=== PATIENT | male | born 1985 ===

== ENCOUNTER 2017-05-16 15:06 | Emergency (ER) | payer SELFPAY ==
[~2017-05-16] VITALS: Ht 182.9 cm; Wt 70.3 kg
--- NOTE | 2017-05-16 15:38 | NUR ---
Varinder elaine in EDM - 05/16/17 at 1539 by PIPPA PT OUT OF ER FOR CHEST XRAY
--- NOTE | 2017-05-16 15:39 | NUR ---
PT BACK IN ER FROM CHEST XRAY
[2017-05-16] MEDS ORDERED: ACETAMINOPHEN ES 500 MG TABLET PO ONE (16:00)
[2017-05-16] MEDS ORDERED: ACETAMINOPHEN ES 500 MG TABLET ONE (16:15)
--- NOTE | 2017-05-16 16:33 | NUR ---
Patient discharged to home in stable conditon. Written and verbal after care instructions given. Patient verbalizes understanding of instructions. Steady gait
[2017-05-16 16:36] VITALS: BP 130/72
== END 2017-05-16 16:37 | disposition home or self-care (01) ==
LOC: ER 15:07
DX: S20.212A Contusion of left front wall of thorax, initial encounter (principal); W13.2XXA Fall from, out of or through roof, initial encounter; Y93.89 Activity, other specified; Y92.89 Other specified places as the place of occurrence of the external cause; Y99.8 Other external cause status
CPT/HCPCS: 71020; 99284; A4663